=== PATIENT | male | born 1990 | race Caucasian/White ===

== ENCOUNTER 2017-01-09 21:10 | Emergency (ER) | payer MEDICAID ==
[~2017-01-09] VITALS: Ht 162.6 cm; Wt 77.0 kg
[~2017-01-09 21:10] MED LIST: ALBU8.5H3 INH; PRED20TA PO; RTPRO NEB
[2017-01-09 21:28] VITALS: Ht 162.6 cm; Wt 77.0 kg
[2017-01-10] MEDS ORDERED: ALBUTEROL 0.083% (NEB) 2.5 MG/3 ML AMP HHN STA (01:27)
[2017-01-10] MEDS ORDERED: ACETAMINOPHEN 325 MG TAB PO ONE (01:30)
[2017-01-10] MEDS ORDERED: ALBU18HF INHALATION (01:32)
[2017-01-10] MEDS ORDERED: ACET325T33 PO (01:32)
[2017-01-10] MEDS ORDERED: PRED20TA PO (01:32)
--- NOTE | 2017-01-10 01:42 | ERD ---
ER Documentation Chief Complaint Date/Time DATE: 01/10/17 TIME: 01:38 Chief Complaint SOB and vomiting. HPI 26-year-old male presents to ED with chief complaint of shortness of breath and cough 3 days. Associated symptoms include post tussive vomiting, fever, and sore throat. Denies neck stiffness, ear pain, chest pain, and difficulty swallowing. He has not taken any medications for relief of symptoms, as he is out of his albuterol inhaler. ROS All systems reviewed and are negative except as per history of present illness. Medications Home Meds Active Scripts Acetaminophen* (Tylenol*) 325 Mg Tablet, 2 TAB PO Q6 Y for PAIN AND OR ELEVATED TEMP, #20 TAB Prov:Shelly Vazquez PA-C 01/10/17 Albuterol Sulfate* (Ventolin HFA*) 18 Gm Hfa.aer.ad, 2 PUFF INHALATION Q4H, #1 INHALER Prov:Shelly Vazquez PA-C 01/10/17 Prednisone* (Prednisone*) 20 Mg Tab, 40 MG PO DAILY for 4 Days, TAB Prov:Shelly Vazquez PA-C 01/10/17 Albuterol Sulfate* (Proair HFA*) 8.5 Gm Hfa.aer.ad, 2 PUFF INH Q4, #1 INHALER Prov:GAGANDEEP PHANSTNANCY Benitez DO 02/22/16 Albuterol Sulfate* (Proventil* Neb) 0.083% Neb, 2.5 MG NEB Q4 Y for SHORTNESS OF BREATH, #30 EA Prov:LEONOROSGAGANDEEPSTOLOS A. DO 02/22/16 Prednisone* (Prednisone*) 20 Mg Tab, 60 MG PO DAILY for 5 Days, TAB Prov:LEKKOS,APOSTOLOS A. DO 02/22/16 Allergies Allergies: Coded Allergies: No Known Allergy (Unverified , 02/22/16) PMhx/Soc Medical and Surgical Hx: pt denies Surgical Hx History of Surgery: No Anesthesia Reaction: No Hx Neurological Disorder: No Hx Respiratory Disorders: Yes (ASTHMA) Hx Cardiac Disorders: No Hx Psychiatric Problems: No Hx Miscellaneous Medical Probl: No Hx Alcohol Use: No Hx Substance Use: No Hx Tobacco Use: No Smoking Status: Never smoker Physical Exam Vitals Vital Signs Date Time Temp Pulse Resp B/P Pulse Ox O2 Delivery O2 Flow Rate FiO2 01/10/17 02:11 100.3 109 20 120/80 100 Room Air 01/10/17 01:40 97 24 100 21 01/10/17 00:51 100.3 102 20 120/80 95 Room Air 01/09/17 21:28 100.2 106 20 120/73 98 Physical Exam GENERAL: Non-toxic. No apparent signs of distress. Patient speaking in full sentences. HEENT: Atraumatic. Bilateral eyes are PERRL EOM intact. Normal conjunctiva, no injection. No eyelid or lower eyelid swelling noted. Ears: Normal tympanic membrane, no erythema or bulging. No ear canal swelling. No ear discharge. Nose : no nasal discharge. Throat: Oropharynx normal. Tongue pink and moist. No tonsillar swelling or tonsillar exudates. No lymphadenopathy. LUNGS: Clear to auscultation. No accessory muscle use. No wheezing, no crackles. No signs or symptoms of respiratory distress. HEART: Regular rate and rhythm. No murmurs, clicks, rubs or gallops. ABDOMEN: Soft, nondistended, no tenderness to palpation. NEURO: Cranial nerves are grossly intact. Normal mental status for age. Good muscle tone. SKIN: There is no apparent rash, petechiae, erythema or swelling. Good skin turgor. Results 24 hrs Current Medications Medications (Trade) Dose Ordered Sig/Rob Route PRN Reason Start Time Stop Time Status Last Admin Dose Admin Albuterol (Proventil 0.083% (Neb)) 2.5 mg ONCE STAT HHN 01/10/17 01:27 01/10/17 01:28 DC 01/10/17 01:42 Acetaminophen (Tylenol Tab) 650 mg ONCE ONCE PO 01/10/17 01:30 01/10/17 01:31 DC 01/10/17 01:41 Procedures/MDM Patient presented with complaint of shortness of breath, on exam he had mild expiratory wheezing on auscultation bilaterally. He presented in triage with a fever of 100.2. I ordered an albuterol nebulizer treatment and Tylenol to be given in the ER. Patient tolerated medications well. He reported relief with albuterol treatment. He appears to be in no acute distress, displays no signs of respiratory distress, is alert and speaking in full sentences. At this time low suspicion for pneumonia, PE, TB, and status asthmaticus. I prescribed the patient an albuterol inhaler and prednisone for 4 days. He is advised to follow-up with a community clinic, resource list provided. Patient stable for discharge and outpatient management. Advised to follow-up with a PCP in 1-2 days. Departure Diagnosis: Primary Impression: Asthma exacerbation Condition: Good Patient Instructions: Asthma, Acute (Adult) Referrals: COMMUNITY CLINICS YOU HAVE RECEIVED A MEDICAL SCREENING EXAM AND THE RESULTS INDICATE THAT YOU DO NOT HAVE A CONDITION THAT REQUIRES URGENT TREATMENT IN THE EMERGENCY DEPARTMENT. FURTHER EVALUATION AND TREATMENT OF YOUR CONDITION CAN WAIT UNTIL YOU ARE SEEN IN YOUR DOCTORS OFFICE WITHIN THE NEXT 1-2 DAYS. IT IS YOUR RESPONSIBILITY TO MAKE AN APPOINTMENT FOR FOLOW-UP CARE. IF YOU HAVE A PRIMARY DOCTOR --you should call your primary doctor and schedule an appointment IF YOU DO NOT HAVE A PRIMARY DOCTOR YOU CAN CALL OUR PHYSICIAN REFERRAL HOTLINE AT IF YOU CAN NOT AFFORD TO SEE A PHYSICIAN YOU CAN CHOSE FROM THE FOLLOWING [facility] [address] [facility] [address] [employer] [facility] [facility] [address] [facility] [address] [facility] [address] [facility]. [facility]. [address] Additional Instructions: Call your primary care doctor TOMORROW for an appointment during the next 1-2 days.See the doctor sooner or return here if your condition worsens before your appointment time. Shelly Vazquez PA-C Jan 10, 2017 01:41
[2017-01-10 02:11] VITALS: BP 120/80; PULSE 109; RESP 20; TEMP 100.3
== END 2017-01-10 02:11 | disposition home or self-care (01) ==
LOC: FTE 21:10
DX: J45.901 Unspecified asthma with (acute) exacerbation (principal)
CPT/HCPCS: Z7502; Z7610

== ENCOUNTER 2017-10-11 16:07 | Emergency (ER) | payer MEDICAID ==
[~2017-10-11] VITALS: Ht 162.6 cm; Wt 73.4 kg
[~2017-10-11 16:07] MED LIST changes: +ACET325T33 PO; +ALBU18HF INHALATION
[2017-10-11 16:19] VITALS: Ht 162.6 cm; Wt 73.4 kg
[2017-10-11] MEDS ORDERED: ALBUTEROL 0.083% (NEB) 2.5 MG/3 ML AMP HHN STA (19:05)
[2017-10-11] MEDS ORDERED: predniSONE 20 MG TAB PO ONE (19:30)
[2017-10-11] MEDS ORDERED: ACETAMINOPHEN 325 MG TAB PO ONE (19:30)
[2017-10-11] MEDS ORDERED: PRED20TA PO (19:55)
[2017-10-11] MEDS ORDERED: IBUP-1542 PO (19:55)
[2017-10-11] MEDS ORDERED: AZIT250T94 PO (19:55)
[2017-10-11] MEDS ORDERED: ALBU8.5H3 INH (19:58)
[2017-10-11] MEDS ORDERED: FLOV220 INHALATION (19:58)
--- NOTE | 2017-10-11 20:01 | ERD ---
ER Documentation Chief Complaint Chief Complaint cough and fever x 2 days HPI 26, presents with fever and cough and wheezing for 2 days. Has history of asthma and is out of his medication. He denies any vomiting, abdominal pain, chest pain, neck stiffness. ROS All systems reviewed and are negative except as per history of present illness. Medications Home Meds Active Scripts Fluticasone Propionate* (Flovent* HFA 220) 12 Gm Inha, 2 PUFF INHALATION BID, # 1 INHALER Prov:ISHAN ULLOA MD 10/11/17 Albuterol Sulfate* (Proair HFA*) 8.5 Gm Hfa.aer.ad, 2 PUFF INH Q4, #1 INHALER Prov:ISHAN ULLOA MD 10/11/17 Ibuprofen* (Motrin*) 600 Mg Tab, 600 MG PO Q6, #15 TAB Prov:ISHAN ULLOA MD 10/11/17 Azithromycin* (Zithromax*) 250 Mg Tablet, 250 MG PO .ZPACK DIRECTED, #6 TAB TAKE 500 MG (2 TABS) THE FIRST DAY THEN 250 MG (1 TAB) DAYS 2-5 Prov:ISHAN ULLOA MD 10/11/17 Prednisone* (Prednisone*) 20 Mg Tab, 60 MG PO DAILY for 5 Days, #12 TAB 60 mg by mouth for 2 days then 40 mg by mouth for 3 days. Start 10/12/2017 Prov:ISHAN ULLOA MD 10/11/17 Acetaminophen* (Tylenol*) 325 Mg Tablet, 2 TAB PO Q6 Y for PAIN AND OR ELEVATED TEMP, #20 TAB Prov:Shelly Vazquez PA-C 01/10/17 Albuterol Sulfate* (Ventolin HFA*) 18 Gm Hfa.aer.ad, 2 PUFF INHALATION Q4H, #1 INHALER Prov:Shelly Vazquez PA-C 01/10/17 Prednisone* (Prednisone*) 20 Mg Tab, 40 MG PO DAILY for 4 Days, TAB Prov:Shelly Vazquez PA-C 01/10/17 Albuterol Sulfate* (Proair HFA*) 8.5 Gm Hfa.aer.ad, 2 PUFF INH Q4, #1 INHALER Prov:OCTAVIO PHAN DO 02/22/16 Albuterol Sulfate* (Proventil* Neb) 0.083% Neb, 2.5 MG NEB Q4 Y for SHORTNESS OF BREATH, #30 EA Prov:OCTAVIO PHAN. DO 02/22/16 Prednisone* (Prednisone*) 20 Mg Tab, 60 MG PO DAILY for 5 Days, TAB Prov:OCTAVIO PHAN. DO 02/22/16 Allergies Allergies: Coded Allergies: No Known Allergy (Unverified , 10/11/17) PMhx/Soc History of Surgery: No Anesthesia Reaction: No Hx Neurological Disorder: No Hx Respiratory Disorders: Yes (ASTHMA) Hx Cardiac Disorders: No Hx Psychiatric Problems: No Hx Miscellaneous Medical Probl: No Hx Alcohol Use: No Hx Substance Use: No Hx Tobacco Use: No Physical Exam Vitals Vital Signs Date Time Temp Pulse Resp B/P Pulse Ox O2 Delivery O2 Flow Rate FiO2 10/11/17 19:16 98 20 98 21 10/11/17 16:19 101.2 100 16 135/66 96 Physical Exam Const: [] Letter, [id number]. Head: Atraumatic Eyes: Normal Conjunctiva ENT: Normal External Ears, Nose and Mouth. Neck: Full range of motion..~ No meningismus. Resp: Clear to auscultation bilaterally. Diffuse wheezing without rales or retractions. Cardio: Regular rate and rhythm, no murmurs Abd: Soft, non tender, non distended. Normal bowel sounds Skin: No petechiae or rashes Back: No midline or flank tenderness Ext: No cyanosis, or edema Neur: Awake and alert Psych: Normal Mood and Affect Results 24 hrs Current Medications Medications (Trade) Dose Ordered Sig/Rob Route PRN Reason Start Time Stop Time Status Last Admin Dose Admin Acetaminophen (Tylenol Tab) 650 mg ONCE ONCE PO 10/11/17 19:30 10/11/17 19:31 DC 10/11/17 19:12 Prednisone (Prednisone) 60 mg ONCE ONCE PO 10/11/17 19:30 10/11/17 19:31 DC 10/11/17 19:11 Albuterol (Proventil 0.083% (Neb)) 5 mg ONCE STAT HHN 10/11/17 19:05 10/11/17 19:06 DC 10/11/17 19:16 Procedures/MDM Patient presents with febrile illness and wheezing and coughing without evidence of hypoxemia or respiratory distress. He is given Tylenol, prednisone , albuterol treatment 1. Clear lungs on serial exam. Patient presents with productive cough as well. He will treated empirically with Zithromax, prednisone, refills of albuterol, fever control although he may have a viral illness. Is to recheck for any worsening symptoms as directed after instructions or primary care doctor this week. The patient was stable with no new complaints during the ER course. Clinically, there is no current evidence to suggest meningitis, sepsis, acute abdomen, pneumonia, acute coronary syndrome , pulmonary embolism, or any other emergent condition appearing to require further evaluation or hospitalization. The patient should certainly return for any new or worsening symptoms per the aftercare instructions. They should otherwise follow-up with her primary care doctor for reevaluation this week. Departure Diagnosis: Primary Impression: URI, acute Additional Impression: Asthma exacerbation Asthma severity: unspecified severity Asthma persistence: unspecified Qualified Code: J45.901 - Exacerbation of asthma, unspecified asthma severity, unspecified whether persistent Condition: Stable Patient Instructions: Bronchitis With Wheezing (Adult), Fever Control (Adult) Additional Instructions: Recheck for new or worsening symptoms or primary care doctor. ISHAN ULLOA MD Oct 11, 2017 20:01
[2017-10-11 21:40] VITALS: BP 118/59; PULSE 103; RESP 18; TEMP 99.3
== END 2017-10-11 21:42 | disposition home or self-care (01) ==
LOC: FTE 16:07
DX: J06.9 Acute upper respiratory infection, unspecified (principal); J45.901 Unspecified asthma with (acute) exacerbation
CPT/HCPCS: 94664; J7512; Z7502; Z7610